=== PATIENT | male | born 1990 ===

== ENCOUNTER 2021-06-16 19:31 | Emergency (ER) | payer MEDICAID, OTHER ==
[~2021-06-16] VITALS: Ht 170.2 cm; Wt 79.0 kg
[2021-06-16 20:18] VITALS: BP 151/90
[2021-06-16] MEDS ORDERED: AMOX-115 PO (21:38)
[2021-06-16] MEDS ORDERED: FLUT16SP2 BOTHNARES (21:38)
[2021-06-16] MEDS ORDERED: METH4TAB3 PO (21:38)
--- NOTE | 2021-06-16 21:49 | NUR ---
pt seen and dc/d by provider
== END 2021-06-16 21:49 | disposition home or self-care (01) ==
LOC: ER 19:32
DX: U07.1 COVID-19 (principal); J32.9 Chronic sinusitis, unspecified; R52 Pain, unspecified; Z79.2 Long term (current) use of antibiotics; Z79.899 Other long term (current) drug therapy
CPT/HCPCS: 87635; 99283; C9803